=== PATIENT | male | born 1990 | race Caucasian/White ===

== ENCOUNTER 2017-03-10 17:52 | Emergency (ER) | payer OTHER ==
[2017-03-10 17:59] VITALS: TEMP 99.1
--- NOTE | 2017-03-10 18:13 | EDPHY ---
H & P Time Seen by Provider: 03/10/17 18:05 HPI/ROS: CHIEF COMPLAINT: Right 5th digit laceration HISTORY OF PRESENT ILLNESS: 26-year-old left hand dominant male with up-to- date tetanus sustained accidental laceration to his right 5th digit proximal phalanx palmar aspect of his opening a can of a vegetables this evening. No paresthesia. No sensory motor deficit. PHYSICAL EXAM (Prior to examination, patient consented to physical exam, hands were washed and my usual and customary physical exam procedures followed) 1) GENERAL: Well-developed, well-nourished, alert and oriented. Appears to be in no acute distress. 2) HEAD: Normocephalic 3) HEENT: sclera anicteric 4) LUNGS: Breathing comfortably. 5) SKIN: right 5th digit proximal phalanx, palmar aspect 1 cm laceration well- demarcated superficial 6) MUSCULOSKELETAL: no FDP or FDS dysfunction. 7) NEUROLOGIC: Full sensation distally Smoking Status: Never smoked Constitutional: Initial Vital Signs Temperature (C) 37.3 C 03/10/17 17:58 Allergies/Adverse Reactions: No Known Allergies Allergy (Unverified 03/10/17 17:59) Home Medications: Medication Instructions Recorded NK [No Known Home Meds] 03/10/17 MDM/Departure - MDM Procedures: Procedure: Laceration repair. I explained the indications, risks and benefits for both laceration repair and anesthetic administration. Verbal consent was obtained from the patient . The laceration on the right 5th digit was anesthetized using 0.5% bupivicaine without epinephrine . After anesthetic administered the patient was observed for a period of time and had no apparent adverse effects. The wound was cleaned , prepped, draped in normal sterile fashion and explored to its base. No foreign body seen, no foreign bodies palpated. There were no deep structures involved. No tendon injury was identified. The wound was repaired with 2 simple interrupted 5 O Prolene suture. The wound repair was simple. The procedure was performed by myself. Patient has been informed that scarring will occur, although efforts have been made to minimize this. ED Course/Re-evaluation: Care of patient under supervision of secondary supervising physician Dr Durand . - Depart Disposition: Home, Routine, Self-Care Clinical Impression: Laceration of right little finger Qualifiers: Encounter type: initial encounter Damage to nail status: without damage Foreign body presence: without foreign body Qualified Code(s): S61.216A - Laceration without foreign body of right little finger without damage to nail, initial encounter Condition: Good Instructions: Care For Your Stitches (ED), Laceration (ED) Additional Instructions: Return to the ER if you develop redness, swelling, discharge, warmth to the wound, red streaks going up your arm, or any other symptoms that concern you. Referrals: Return, to the ER in 10 days for suture removal [Other] - 03/20/17
== END 2017-03-10 18:30 | disposition home or self-care (01) ==
PROC: 0HQFXZZ Repair Right Hand Skin, External Approach (ICD-10-PCS; principal; 2017-03-10)
DX: S61.216A Laceration without foreign body of right little finger without damage to nail, initial encounter (principal); W26.8XXA Contact with other sharp object(s), not elsewhere classified, initial encounter; Y99.8 Other external cause status; Y93.89 Activity, other specified